=== PATIENT | female | born 1970 | race Hispanic/Latino ===

== ENCOUNTER 2018-04-06 15:00 | Outpatient (RCR) | payer OTHER ==
[~2018-04-06 15:00] MED LIST: DUEXIS 800-26.1 EACH PO
== END 2018-04-20 ==
LOC: PT 15:00
PROVIDERS: ATTEND Podiatrist Foot & Ankle Surgery
DX: M76.61 Achilles tendinitis, right leg (principal); M76.62 Achilles tendinitis, left leg

== ENCOUNTER → 2019-02-26 | Day surgery (SDC) | payer OTHER ==
--- NOTE | 2019-02-25 12:49 | Diagnostic Imaging Report ---
PROCEDURE: X-RAY CHEST, TWO VIEWS COMPARISON: None. INDICATIONS: PRE OP FOOT SURGERY FINDINGS: Lungs are well-inflated and without consolidation, pleural effusion, or pneumothorax. Cardiomediastinal contour and pulmonary vasculature are within normal limits. No acute osseous abnormality. CONCLUSION: No acute cardiopulmonary abnormality. Dictated by: Tom Spencer M.D. on 02/25/2019 at 12:54 Electronically approved by: Tom Spencer M.D. on 02/25/2019 at 12:54
[~2019-02-26] MED LIST changes: +ACETAMINOPHEN 1000 MG/100 ML IV ONE; +BUPIVACAINE HCL 0.5% INJ 30 ML VIAL INJ ONE; +CEFAZOLIN SOD 1 GM/NS 50ML 50 ML IV ONE; +DEXAMETHASONE SOD PHOS INJ 4 MG/ML VIAL ONE; +FENTANYL CITRATE/PF 100MCG/2 ML INJ ONE; +KETOROLAC TROMETHAMINE 30 MG/ML VIAL ONE; +LIDOCAINE HCL 2% LOCAL INJ 5 ML SDV VIAL INJ ONE; +MIDAZOLAM HCL 2 MG/2 ML VIAL ONE; +ONDANSETRON HCL INJ 2MG/ML 2ML 2 MG/ML VIAL ONE; +PROPOFOL IV EMULSION 10 MG/ML 20 ML VIAL ONE; +ROCURONIUM BROMIDE 10 MG/ML 5ML VIAL ONE; +SEVOFLURANE INHAL SOLN 250 ML PEN BTL ONE; +VITAMIN D400 UNIT PO
--- OUTSIDE RECORDS SUMMARY | 2019-02-26 05:14 | XMS REPORT ---
[facility] Address Unknown Phone Unavailable Care Team Providers Care Embedder Name Role Phone Raj ORTEZ Unavailable Unavailable Payers Payer Name Policy Type Policy Number Effective Date Expiration Date Problems This patient has no known problems. Allergies, Adverse Reactions, Alerts Allergy Name Allergy Type Status Severity Reaction(s) Onset Date Inactive Date Treating Clinician Comments No Known Allergies DA Active U 2011-05-07 00:00:00 Medications This patient has no known medications. Encounters Start Date/Time End Date/Time Encounter Type Admission Type Attending Clinicians Care Facility Care Department Encounter ID 2019-02-05 07:43:00 2019-02-05 07:43:00 Outpatient [id number] 2019-01-28 13:53:00 2019-01-28 13:53:00 Outpatient [facility] [id number] Results Test Description Test Time Test Comments Text Results Atomic Results Result Comments CHEST 2 VIEWS 2019-02-25 12:54:00 [facility] [address] [place], [place] [address] Patient Name: WILLIAM VAZQUEZ MR #: [id number] : 1970 Age/Sex: 48/F Req #: [id number] Adm Physician: Ordered by: Raj ORTEZ DPM Report #: [id number] Location: OR Room/Bed: Procedure: [id number] DX/CHEST 2 VIEWS Exam Date: 02/25/19 Exam Time: 1200 REPORT STATUS: Signed PROCEDURE: X-RAY CHEST, TWO VIEWS COMPARISON: None. INDICATIONS: PRE OP FOOT SURGERY FINDINGS: Lungs are well-inflated and without consolidation, pleural effusion, or pneumothorax. Cardiomediastinal contour and pulmonary vasculature are within normal limits. No acute osseous abnormality. CONCLUSION: No acute cardiopulmonary abnormality. Dictated by: Bennie Bridges M.D. on 02/25/2019 at 12:54 Electronically approved by: Bennie Bridges M.D. on 02/25/2019 at 12:54 Dictated By: BENNIE BRIDGES MD [id number] Transcribed By: LUCIAN on 02/25/19 1254 COPY TO: Raj ORTEZ DPM COMPREHENSIVE METABOLIC PANEL 2018-11-21 23:17:00 SODIUM (test code=NA) 142 mmol/L 137-145 POTASSIUM (test code=K) 4.1 mmol/L 3.4-5.0 CHLORIDE (test code=CL) 105 mmol/L 98-107 CARBON DIOXIDE (test code=CO2) 27 mmol/L 22-30 GLUCOSE (test code=GLU) 118 mg/dL 74-106 BLOOD UREA NITROGEN (test code=BUN) 12 mg/dL 7-17 GLOMERULAR FILTRATION RATE (test code=GFR) >=60 max estimate >60 The estimated glomerular filtration rate is computed usingpatient race, age (>18), sex, and serum creatinine. If anyof the needed data elements are missing the Laboratory cannot compute an estimation of the glomerular filtration rate. CREATININE (test code=CREAT) 0.5 mg/dL 0.5-1.0 TOTAL PROTEIN (test code=PROT) 7.6 g/dL 6.3-8.2 ALBUMIN (test code=ALB) 4.3 g/dL 3.5-5.0 CALCIUM (test code=CA) 9.6 mg/dL 8.4-10.2 BILIRUBIN TOTAL (test code=BILT) 0.2 mg/dL 0.2-1.3 BILIRUBIN CONJUGATED (test code=BILCON) 0 mg/dL 0-0.3 ~~~~~~~~~~~~~~~~~~~~~~~~~~~~~~~~~~~~~~~~~~~~~~~~~~~~~~~~~~~~CONJUGATED BILIRUBIN IS THE REPLACEMENT ASSAY FOR DIRECTBILIRUBIN.~~~~~~~~~~~~~~~~~~~~~~~~~~~~~~~~~~~~~~~~~~~~~~~~~~~~~~~~~~~~ BILIRUBIN UNCONJUGATED (test code=BILUNC) 0 mg/dL 0-1.1 SGOT/AST (test code=AST) 26 U/L 15-46 SGPT/ALT (test code=ALT) 38 U/L 13-69 ALKALINE PHOSPHATASE (test code=ALKP) 68 U/L 38-126 CBC W/AUTO [id number] 23:10:00* Test Item Value Reference Range Comments WHITE BLOOD CELL (test code=WBC) 9.4 x10 3/uL 5.0-12.0 RED BLOOD CELL (test code=RBC) 4.71 x10 6/uL 4.20-5.40 HEMOGLOBIN (test code=HGB) 14.2 g/dL 12.0-16.0 HEMATOCRIT (test code=HCT) 41.4 % 36.0-46.0 MEAN CELL VOLUME (test code=MCV) 88 fL 81-99 MEAN CELL HGB (test code=MCH) 30.1 pg 27-31 MEAN CELL HGB CONCENTRATION (test code=MCHC) 34.3 g/dL 33-37 RED CELL DISTRIBUTION WIDTH (test code=RDW) 12.4 % 11.5-15.5 PLATELET COUNT (test code=PLT) 169 x10 3/uL 130-400 MEAN PLATELET VOLUME (test code=MPV) 10.5 fL 9.4-16.4 NEUTROPHIL % (test code=NT%) 45.8 % 43-65 IMMATURE GRANULOCYTE % (test code=IG%) 0.3 % 0.0-2.0 LYMPHOCYTE % (test code=LY%) 44.2 % 20.5-45.5 MONOCYTE % (test code=MO%) 6.1 % 5.5-11.7 EOSINOPHIL % (test code=EO%) 3.3 % 0.9-2.9 BASOPHIL % (test code=BA%) 0.3 % 0.2-1.0 NUCLEATED RBC % (test code=NRBC%) 0.0 % 0-1.0 NEUTROPHIL # (test code=NT#) 4.29 x10 3/uL 2.2-4.8 IMMATURE GRANULOCYTE # (test code=IG#) 0.03 x10 3/uL 0-0.03 LYMPHOCYTE # (test code=LY#) 4.14 x10 3/uL 1.3-2.9 MONOCYTE # (test code=MO#) 0.57 x10 3/uL 0.3-0.8 EOSINOPHIL # (test code=EO#) 0.31 x10 3/uL 0.0-0.2 BASOPHIL # (test code=BA#) 0.03 x10 3/uL 0.0-0.1 - CT LOWER EXTRM W/O C [id number] 23:06:00 [place]: St: REG Name: WILLIAM OLMEDO [facility] : 9 Age/S: 47/F [address] Unit: [id number] Loc: [place] [address] Phys: Kerri Braxton Acct: [id number] Dis Date: Status: REG ER PHONE #: [phone] Exam Date: 11/21/20182244 FAX #: [phone] Reason: PAIN AND SWELLING EXAMS: CPT CODE: [id number] CT LOWER EXTRM W/[place] [address] Site ID: [id number] INDICAT ION: Right foot pain and swelling TECHNIQUE: Axial nonenhanced CT of the right foot performed, with coronal and sagittal two-dimensional and volume 3-D reformatted images. CT dose lowering technique utilized, with adjustment of MA/kV according to patient size and automated exposure con trol. FINDINGS: Significant diffuse thickening and p resumed chronic interstitial tearing throughout the insertional Achilles, with a tiny interstitial fluid collection and no evidence of rupture. No calcaneal erosive change or bursal fluid collection. No acut e fracture or dislocation. No significant arthritic change. IMP RESSION: Significant diffuse thickening and presumed chronic i nterstitial tearing throughout the insertional Achilles, with a tiny int erstitial fluid collection and no evidence of rupture. Elec tronically Signed by Cristopher Marley MD on 11/21/2018 at 2306 Reported and signed by: Cristopher Marley MD CC: Technologist: Dennise Morin; EMMA BUTT Trnscrd Dt/Tm: 11/21/2018 (5735) [id number] Orig Print D/T: S: 11/21/2018 (8579 PAGE 1 Signed Report
--- OUTSIDE RECORDS SUMMARY | 2019-02-26 05:14 | XMS REPORT | Continuity of Care Document ---
Author Author [facility] [facility] Address Unknown Phone Unavailable Care Team Providers Care Mechanical Repair Worker Name Role Phone [facility] Unavailable Unavailable Problems No Data Provided for This Section Medications Medication Details Route Status Patient Instructions Ordering Provider Order Date Source Ibuprofen/Famotidine (Duexis 800-26.6 Mg Tablet) 1 Each Tablet Three Times A Day Active [facility] Allergies, Adverse Reactions, Alerts No Known Medication Allergies Immunizations No Data Provided for This Section Results No Data Provided for This Section Pathology Reports No Data Provided for This Section Diagnostic Reports No Data Provided for This Section Consultation Notes No Data Provided for This Section Discharge Summaries No Data Provided for This Section History and Physicals No Data Provided for This Section Vital Signs No Data Provided for This Section Encounters Location Location Details Encounter Type Encounter Number Reason For Visit Attending Provider ADM Date DC Date Status Source Discharged Recurring [id number] YEFRI HERRERA DPM 04/06/2018 04/20/2018 [facility] Procedures No Data Provided for This Section Assessment and Plan No Data Provided for This Section Plan of Care Plan of Care Date Source Prescriptions See Medication Section 04/21/2018 [facility] Social History Social History Date Source No social history information available. 04/21/2018 [facility] Family History No Data Provided for This Section Advance Directives Order Name Results Value Date Source Advance Directives Advance Directives Directive Response Recorded Date/Time Does the patient have an advance directive? No 05/08/14 10:13am If yes, is advance directive on file with [facility]? No 05/08/14 10:13am If not on file with [facility] will patient provide a copy? No 05/08/14 10:13am Do you have a Directive to Physician? No 02/23/18 1:07pm Do you have a Medical Power of Manifest/Order Organizer Print Orders? No 02/23/18 1:07pm Do you have an out of hospital Do Not Resuscitate Order? No 02/23/18 1:07pm Do you have any special needs we should be aware of? No 02/23/18 1:07pm Do you have a support person here with you today? No 02/23/18 1:07pm Did patient receive Notice of Privacy Practices? No 02/23/18 1:07pm Did patient receive patient rights and responsibilities? No 02/23/18 1:07pm 04/21/2018 [facility] Functional Status No Data Provided for This Section
[2019-02-26] MEDS: FENTANYL CITRATE/PF 100MCG/2 ML INJ ONE (08:23)
[2019-02-26 09:45] VITALS: BP 124/75
--- NOTE | 2019-02-26 11:35 | Operative Report ---
DATE OF PROCEDURE: 02/26/2019 SURGEON: Nohemi Delvalle DPM PREOPERATIVE DIAGNOSIS: Right Achilles tendon rupture. POSTOPERATIVE DIAGNOSIS: Right Achilles tendon rupture. PLANNED PROCEDURE: Right repair of Achilles tendon rupture. SURGEON: Kiran Lu DPM (Charley) MASTER CONTROL OPERATOR: Nohemi Delvalle DPM ANESTHESIA: General with a postoperative block consisting of 20 mL of 0.5% Marcaine plain. HEMOSTASIS: Pneumatic thigh tourniquet set at 350 mmHg for a total time of approximately 30 minutes. MATERIALS: 2-0 FiberWire, 3-0 Vicryl, and 4-0 Prolene. ESTIMATED BLOOD LOSS: Less than 10 mL. PATHOLOGY: None. PROCEDURE NOTE: The patient was seen in the preoperative waiting room with the correct procedure and site was identified. The patient was brought to the operating room and general anesthesia was initiated while on the gurney. A well-padded pneumatic tourniquet was placed about the patient's right thigh. The patient was then flipped into the prone position on the OR table. The right foot, ankle, and leg were then scrubbed, prepped, and draped in the usual aseptic manner. The right foot, ankle, and leg were exsanguinated with an Esmarch bandage and a pneumatic thigh tourniquet was inflated to 350 mmHg for a total time of approximately 30 minutes. Attention was directed to the posterior aspect of the patient's right foot and ankle where a large bulbous knot was noted approximately 4-6 cm proximal to the insertion of the Achilles tendon. A 6 cm linear incision was made directly over the insertion of the Achilles tendon to the level of the gastroc aponeurosis. The incision was carried through subcutaneous tissue it from deeper underling structures. All vital and neurovascular structures were identified, retracted medially and laterally. All bleeders were cauterized or ligated as deemed necessary. At this time, there was noted to be significant scar tissue from the previous surgery. The paratenon was scarred down to the Achilles tendon, it was reflected to allow for good visualization of the Achilles tendon. Approximately 3-4 cm proximal to the insertion of the Achilles tendon, a large bulbous frayed nodular tendon was noted with partial rupturing. The diseased tendon was excised utilizing a #15 blade and passed off to the back table. At this point utilizing a 2-0 FiberWire, a simple continuous repair with the knots buried was performed to the Achilles tendon to allow for full repair medial to lateral as well as end to end. The paratenon was reapproximated with 3-0 Vicryl and the skin was reapproximated utilizing a simple interlocking suture with 4-0 Prolene. The incision site was then dressed with Adaptic, 4x4s, Kerlix, Webril, 4 x 30 posterior splint, 4-inch Ajit wrap, and a 6-inch Ajit wrap. The patient tolerated the procedure and anesthesia well. The patient was transferred to the postoperative recovery unit with vital signs stable and vascular status intact. The patient was monitored there for a short of period time before being sent home with the following written and oral instructions. 1. Keep the dressing clean, dry, and intact. 2. The patient is to remain nonweightbearing in a posterior splint to avoid any ambulation until being seen in the office. 3. The patient was given the office number and instructed to contact us for any problems should arise. EARNEST Dubon/GINA /[id number]
== END | disposition home or self-care (01) ==
LOC: OR 05:11
PROVIDERS: ATTEND Podiatrist Foot & Ankle Surgery
DX: S86.011A Strain of right Achilles tendon, initial encounter (principal); G47.33 Obstructive sleep apnea (adult) (pediatric); X58.XXXA Exposure to other specified factors, initial encounter; Z01.810 Encounter for preprocedural cardiovascular examination; Z01.818 Encounter for other preprocedural examination
CPT/HCPCS: 27650; 71046; 93005; J0131; J0690; J1100; J1885; J2001; J2250; J2405; J2704; J3010